=== PATIENT | female | born 1970 | race Caucasian/White ===

== ENCOUNTER 2017-03-01 15:22 | Emergency (ER) | payer MEDICAID, OTHER ==
[~2017-03-01] VITALS: Ht 160 cm; Wt 66.0 kg
[2017-03-01 15:37] VITALS: Ht 160 cm; Wt 66.0 kg
[2017-03-01] MEDS ORDERED: TRIMETHOPRIM/SULFAMETHOX (DS) TAB PO STA (16:33)
[2017-03-01] MEDS ORDERED: CEPHALEXIN 500 MG CAP PO STA (16:33)
[2017-03-01] MEDS ORDERED: LIDOCAINE 1%/EPI 30 ML INJ INJ STA (16:38)
[2017-03-01] MEDS ORDERED: CEPH-443 PO (16:40)
[2017-03-01] MEDS ORDERED: SULF1TAB31 PO (16:40)
[2017-03-01] MEDS ORDERED: LIDOCAINE 2%/EPI MPF (SDV) 20 ML VIAL INJ STA (16:41)
--- NOTE | 2017-03-01 18:04 | ERD ---
ER Documentation Chief Complaint Date/Time DATE: 03/01/17 TIME: 18:04 Chief Complaint ABSCESS BACK OF RIGHT THIGH BIT BY A SPIDER ONE WEEK AGO HPI This is a 47-year-old female presenting to the emergency department complaining of an abscess on the right posterior thigh from a spider bite that occurred 1 week ago. Patient states the pain is severe, constant and sharp. She denies any fevers. She has not taken any medications for this ROS All systems reviewed and are negative except as per history of present illness. Medications Home Meds Active Scripts Sulfamethoxazole/Trimethoprim* (Bactrim Ds* Tablet) 1 Each Tablet, 1 TAB PO BID , #14 TAB Prov:MARLENE EUCEDA PA-C 03/01/17 Cephalexin* (Keflex*) 500 Mg Capsule, 500 MG PO QID for 10 Days, CAP Prov:MARLENE EUCEDA PA-C 03/01/17 Allergies Allergies: Coded Allergies: No Known Allergy (Verified Allergy, Unknown, 12/11/07) PMhx/Soc Medical and Surgical Hx: pt denies Medical Hx, pt denies Surgical Hx Hx Alcohol Use: Yes Hx Substance Use: No Hx Tobacco Use: No Smoking Status: Never smoker Physical Exam Vitals Vital Signs Date Time Temp Pulse Resp B/P Pulse Ox O2 Delivery O2 Flow Rate FiO2 03/01/17 15:37 99.0 86 17 130/61 99 Physical Exam General: WD/WN, in no apparent distress, non-toxic appearing HENT: NC/AT Eyes: Conjunctiva normal Neck: Supple Pulm: Clear to auscultation, normal labored breathing; no wheezing/rales/ rhonchi heard CV: Good capillary refill GI: Non-distended, no guarding Back: No masses Ext: No clubbing, cyanosis, or edema Neuro: Moves on all fours Skin: right posterior thigh has 3cm diameter papule with necrotic tissue and purulence wit surrounding 3cm erythema Normal turgor, color, and temperature. No ulcerations or rashes noted. Psych: Normal mood Results 24 hrs Current Medications Medications (Trade) Dose Ordered Sig/Chinmay Route PRN Reason Start Time Stop Time Status Last Admin Dose Admin Cephalexin (Keflex) 500 mg ONCE STAT PO 03/01/17 16:33 03/01/17 16:34 DC 03/01/17 16:38 Trimethoprim/ Sulfamethoxazole (Bactrim (Ds)) 1 tab ONCE STAT PO 03/01/17 16:33 03/01/17 16:34 DC 03/01/17 16:38 Lidocaine/ Epinephrine (Xylocaine 1%/ Epi) 30 ml ONCE STAT INJ 03/01/17 16:38 03/01/17 16:39 DC Lidocaine/ Epinephrine (Xylocaine 2%/ Epi Mpf(Sdv)) 20 ml ONCE STAT INJ 03/01/17 16:41 03/01/17 16:43 DC Procedures/MDM 47-year-old female presents to the emergency department with an abscess to the right posterior thigh from a spider bite one week ago. There is evidence of draining purulence and necrotic tissue, incision and drainage was preformed, read below There was no evidence of tendon or arterial damage. There was no evidence of osteomyelitis, lymphangitis, necrotizing fasciitis. In the ED prescription for Keflex and Bactrim was given, prescription for outpatient was also provided. Hemodynamically stable for discharge home. Discussed two day wound check. return sooner if condition worsens. Patient understood and agreed with this plan. PROCEDURE NOTE: Verbal consent was obtained Wound was irrigated with normal saline Wound was cleansed with Betadine 15cc Lidocaine 2% with epinephrine was used as a local anesthetic Copious sebaceous like material debrided Wound packed with iodoform gauze strips Procedure tolerated without complications Wound dressed with sterile gauze. Departure Diagnosis: Primary Impression: Abscess Additional Impression: Cellulitis Site of cellulitis: unspecified site Qualified Code: L03.90 - Cellulitis, unspecified cellulitis site Condition: Stable Patient Instructions: Cellulitis, Abscess, Incision And Drainage Additional Instructions: Regrese a estas instalaciones dentro de [facility] para un examen de seguimiento.Regrese antes si polanco condicin se empeora. Regrese a estas instalaciones si no se mejora amelia esperbamos o amelia le dijimos. [place] toda la medicina billie y amelia se le indic. MARLENE EUCEDA PA-C March 01, 2017 18:04
== END 2017-03-01 17:25 | disposition home or self-care (01) ==
LOC: FTE 15:22
DX: L02.415 Cutaneous abscess of right lower limb (principal); L03.115 Cellulitis of right lower limb
CPT/HCPCS: 10061; Z7502; Z7610

== ENCOUNTER 2017-03-03 13:14 | Emergency (ER) | payer MEDICAID ==
[~2017-03-03] VITALS: Ht 152.4 cm; Wt 65.5 kg
[~2017-03-03 13:14] MED LIST: CEPH-443 PO; SULF1TAB31 PO
[2017-03-03 13:17] VITALS: Ht 152.4 cm; Wt 65.5 kg
--- NOTE | 2017-03-03 15:00 | ERD ---
ER Documentation Chief Complaint Date/Time DATE: 03/03/17 TIME: 14:54 Chief Complaint abcess recheck HPI This is a 47-year-old female presents to the emergency room for evaluation after an incision and drainage. The patient did have an incision and drainage on the posterior right thigh 2 days ago. She did have packing in place and was discharged home with antibiotics. She is in the middle of her course of antibiotics at this time and denies any fevers or chills. She came for routine reevaluation. ROS All systems reviewed and are negative except as per history of present illness. Medications Home Meds Active Scripts Sulfamethoxazole/Trimethoprim* (Bactrim Ds* Tablet) 1 Each Tablet, 1 TAB PO BID , #14 TAB Prov:MARLENE EUCEDA PA-C 03/01/17 Cephalexin* (Keflex*) 500 Mg Capsule, 500 MG PO QID for 10 Days, CAP Prov:MARLENE EUCEDA PA-C 03/01/17 Allergies Allergies: Coded Allergies: No Known Allergy (Verified Allergy, Unknown, 12/11/07) PMhx/Soc Hx Alcohol Use: Yes Hx Substance Use: No Hx Tobacco Use: No Physical Exam Vitals Vital Signs Date Time Temp Pulse Resp B/P Pulse Ox O2 Delivery O2 Flow Rate FiO2 03/03/17 13:17 98.9 76 18 122/59 95 Physical Exam Const: No acute distress Head: [Atraumatic] Eyes: [Normal Conjunctiva] ENT: [Normal External Ears, Nose and Mouth.] Neck: [Full range of motion. No meningismus.] Resp: [Clear to auscultation bilaterally] Cardio: [Regular rate and rhythm, no murmurs] Abd: [Soft, non tender, non distended. Normal bowel sounds] Skin: Incision site with iodoform packing and posterior right thigh, mild area of cellulitis, no purulent discharge, no skin sloughing [No petechiae or rashes] Back: [No midline or flank tenderness] Ext: [No cyanosis, or edema] Neur: [Awake and alert] Psych: [Normal Mood and Affect] Procedures/MDM This 47-year-old female presents to the emergency room for evaluation after an incision and drainage was done 48 hours prior to arrival. The patient has had no complications. I did remove packing. The patient was given a bandage. I advised her to continue course of antibiotics. She is afebrile and has an uncomplicated course thus far. I advised her to return immediately to the ER if she were to develop any fevers or chills or discharge and she verbalized understanding. Departure Diagnosis: Primary Impression: Encounter for evaluation of wound Additional Impression: Abscess Condition: Stable NINA ESTEBAN DO Mar 03, 2017 15:00
== END 2017-03-03 15:15 | disposition home or self-care (01) ==
LOC: E/R 13:14
DX: Z48.01 Encounter for change or removal of surgical wound dressing (principal); L02.415 Cutaneous abscess of right lower limb
CPT/HCPCS: 99281